=== PATIENT | male | born 1965 | race Caucasian/White ===

== ENCOUNTER 2021-09-01 13:14 | Emergency (ER) | payer OTHER ==
[~2021-09-01] VITALS: Ht 167.6 cm; Wt 74.8 kg
[2021-09-01 13:51] VITALS: BP 110/77
[2021-09-01] MEDS ORDERED: ALUMINUM HYD/MAG/SIMETHICONE 30 ML UDC PO ONE (14:30)
[2021-09-01] MEDS ORDERED: FAMOTIDINE 20 MG TAB PO ONE (14:30)
--- NOTE | 2021-09-01 15:22 | NUR ---
PT AMBULATED TO ER BED 09 WITH A STEADY GAIT.
--- NOTE | 2021-09-01 15:37 | NUR ---
56 Y/O MALE REFERRED FROM CLINIC FOR C/O ABDOMINAL PAIN 12/14 DESCRIBES CRAMPING X1WEEK. DENIES FEVER/CHILLS. +N/V. ABD IS SOFT, ROUND, NON-TENDER TO PALPATION, BOWEL SOUNDS ACTIVE X4, LAST BM 08/31/21. PMH: PRE-DM NKA
[2021-09-01 15:39] LABS: BASOPHILS % (AUTO) 0.2 % (0.0-2.0); EOSINOPHILS % (AUTO) 0.1 % (0.0-4.0); HEMOGLOBIN 14.2 g/dL (12.0-18.0); LYMPHOCYTES # (AUTO) 0.6 K/uL (2.0-11.5); LYMPHOCYTES % (AUTO) 5.6 % (20.5-51.1); MEAN CORPUSCULAR HEMOGLOBIN 29 pg (27-31); MEAN CORPUSCULAR HGB CONC 34 g/dL (33-37); MEAN CORPUSCULAR VOLUME 85.5 fL (80-94); MONOCYTES # (AUTO) 0.6 K/uL (0.8-1.0); MONOCYTES % (AUTO) 5.4 % (1.7-9.3); NEUTROPHILS # (AUTO) 10.2 K/uL (1.8-7.7); NEUTROPHILS % (AUTO) 88.7 % (42.2-75.2); PLATELET COUNT (AUTO) 214 K/uL (140-450); RED BLOOD CELL COUNT(AUTO) 4.91 MIL/uL (4.20-6.10); RED CELL DISTRIBUTION WIDTH 13.8 % (11.6-13.7); WHITE BLOOD COUNT (AUTO) 11.5 K/uL (4.8-10.8)
[2021-09-01] MEDS ORDERED: FAMOTIDINE 20 MG TAB ONE (15:56)
[2021-09-01] MEDS ORDERED: ALUMINUM HYD/MAG/SIMETHICONE 30 ML UDC ONE (15:56)
[2021-09-01 16:00] LABS: ALBUMIN 3.7 g/dL (3.4-5.0); ANION GAP 12.7 (8-16); CARBON DIOXIDE 27.1 mmol/L (21-32); CREATININE 0.8 mg/dL (0.6-1.3); MAGNESIUM 1.9 mg/dL (1.8-2.4); POTASSIUM 3.8 mmol/L (3.5-5.1)
--- NOTE | 2021-09-01 17:35 | NUR ---
MD OTT AT PT BEDSIDE FOR RE-EVALUATION.
[2021-09-01] MEDS ORDERED: FAMO-90 PO (17:44)
[2021-09-01] MEDS ORDERED: ALUM355S59 PO (17:44)
[2021-09-01 18:04] VITALS: BP 127/90
--- NOTE | 2021-09-01 18:04 | NUR ---
Patient discharged with v/s stable. Written and verbal after care instructions given and explained. Patient alert, oriented and verbalized understanding of instructions. Ambulatory with steady gait. All questions addressed prior to discharge. ID band removed. Patient advised to follow up with PMD. Rx of MAG HYDROX/AL HYDROX/SIMETH AND FAMOTIDINE given. Patient educated on indication of medication including possible reaction and side effects. Opportunity to ask questions provided and answered. Work note given.
== END 2021-09-01 18:04 | disposition home or self-care (01) ==
LOC: MED 13:14
DX: R74.01 Elevation of levels of liver transaminase levels (principal); R11.2 Nausea with vomiting, unspecified; Z79.899 Other long term (current) drug therapy
CPT/HCPCS: 36415; 71045; 80053; 81002; 83690; 83735; 84484; 85025; 93005; 99285